=== PATIENT | male | born 1980 | race Caucasian/White ===

== ENCOUNTER → 2021-06-10 | Outpatient (CLI) | payer SELFPAY ==
[2021-06-11 09:55] LABS: Urine Alcohol Negative (Negative); Urine Barbiturate Negative (Negative); Urine Cocaine Negative (Negative); Urine Methadone Negative (Negative); Urine Opiates Negative (Negative); Urine Phencyclidine Negative (Negative)
== END | disposition home or self-care (01) ==
LOC: LABWHC1 15:54
PROVIDERS: ATTEND Physician Assistant
DX: F11.10 Opioid abuse, uncomplicated (principal)
CPT/HCPCS: 80306

== ENCOUNTER 2021-09-15 17:30 | Emergency (ER) | payer OTHER ==
[2021-09-15 18:42] VITALS: BP 136/80; PULSE 79; RESP 16; TEMP 98.2
--- NOTE | 2021-09-15 19:40 | XR ---
EXAMINATION TYPE: XR knee complete LT DATE OF EXAM: 09/15/2021 COMPARISON: NONE HISTORY: Pain TECHNIQUE: 3 views FINDINGS: There is no fracture nor dislocation. Joint spaces are normal. There is no sign of a joint effusion. There are surgical clips around the knee. IMPRESSION: No acute abnormality of the left knee. No fracture.
--- NOTE | 2021-09-15 22:01 | ED ---
Lower Extremity Injury HPI - General Chief Complaint: Extremity Injury, Lower Stated Complaint: left knee Time Seen by Provider: 09/15/21 21:06 Source: patient Mode of arrival: ambulatory Limitations: no limitations - History of Present Illness Initial Comments: Patient is a 40-year-old male who presents to the emergency department with left knee pain. Patient reports he was at work yesterday around 4:30 AM when he tripped over the base of a construction sign and twisted his left knee in an unknown direction. Patient did not fall. Patient reports 6/10 knee pain over the anterior and lateral left knee. The pain increases to a 7-8/10 with walking. Patient reports left knee instability with walking. Patient reports he iced it several times over the night with no improvement. He denies left knee/leg/foot numbness/paresthesias. Patient denies fever, chills, generalized weakness, headache, shortness of breath, cough, chest pain, palpitations, abdominal pain, nausea, vomiting, diarrhea, constipation, and dysuria. - Related Data Home Medications Medication Instructions Recorded Confirmed Pregabalin 200 mg PO TID 09/15/21 09/15/21 buprenorphine HCL [Subutex] 8 mg SL TID PRN 09/15/21 09/15/21 Allergies Allergy/AdvReac Type Severity Reaction Status Date / Time lithium Allergy Unknown Verified 09/15/21 21:44 morphine Allergy Unknown Verified 09/15/21 21:44 Review of Systems ROS Statement: Those systems with pertinent positive or pertinent negative responses have been documented in the HPI. ROS Other: All systems not noted in ROS Statement are negative. Past Medical History Past Medical History: No Reported History History of Any Multi-Drug Resistant Organisms: None Reported Past Surgical History: Orthopedic Surgery Additional Past Surgical History / Comment(s): left hip replacement Past Psychological History: PTSD Smoking Status: Current every day smoker Past Alcohol Use History: None Reported Past Drug Use History: Marijuana General Exam Limitations: no limitations General appearance: alert, in no apparent distress Head exam: Present: atraumatic, normocephalic, normal inspection Eye exam: Present: normal appearance, PERRL, EOMI. Absent: scleral icterus, conjunctival injection, periorbital swelling Respiratory exam: Present: normal lung sounds bilaterally. Absent: respiratory distress, wheezes, rales, rhonchi, stridor Cardiovascular Exam: Present: regular rate, normal rhythm, normal heart sounds. Absent: systolic murmur, diastolic murmur, rubs, gallop, clicks GI/Abdominal exam: Present: soft, normal bowel sounds. Absent: distended, ten derness, guarding, rebound, rigid Left Knee exam: Present: normal inspection, full ROM, tenderness (Anteriorly and laterally), pain/laxity with valgus, pain/laxity with varus. Absent: swelling, abrasion, laceration, dislocation, erythema, effusion Neurovascular tendon exam: Present: no vascular compromise. Absent: pulse deficit, abnormal cap refill, sensory deficit, extremity cold to touch, pallor Neurological exam: Present: alert, oriented X3, CN II-XII intact Psychiatric exam: Present: normal affect, normal mood Skin exam: Present: warm, dry, intact, normal color. Absent: rash Course Vital Signs 09/15/21 18:39 Temperature 98.2 F Pulse Rate 79 Respiratory 16 Rate Blood Pressure 136/80 O2 Sat by Pulse 97 Oximetry Medical Decision Making - Medical Decision Making Patient is a 40-year-old male who presents to the emergency department with a chief complaint of left knee pain. Left knee x-ray reveals no acute abnormality of the left knee with no fracture. Patient declines pain medication at this time. Left knee was placed in knee immobilizer and crutches were given. Patient instructed to contact supervisor grips for occupational medicine referral for further evaluation and treatment. Return parameters discussed. Dr. Gould is my attending. Disposition Clinical Impression: Left knee pain Disposition: HOME SELF-CARE Condition: Good Instructions (If sedation given, give patient instructions): Knee Pain (ED) Additional Instructions: Keep knee brace on during physical activity. You may take knee brace off when resting knee. Use crutches as needed. Ice knee for 20 minutes 4 times a day. Take ibuprofen as needed for pain. Contact your supervisor grips for occupational medicine referral for further evaluation and treatment. Return to the emergency department if you experience new, concerning, or worsening symptoms Is patient prescribed a controlled substance at d/c from ED?: No Referrals: Nonstaff,Physician [Primary Care Provider] - 1-2 days Time of Disposition: 22:01
== END 2021-09-15 22:15 | disposition home or self-care (01) ==
LOC: EC 17:30
DX: M25.562 Pain in left knee (principal); F43.10 Post-traumatic stress disorder, unspecified; F17.200 Nicotine dependence, unspecified, uncomplicated; F12.90 Cannabis use, unspecified, uncomplicated; Z88.5 Allergy status to narcotic agent; Z96.642 Presence of left artificial hip joint
CPT/HCPCS: 99283